=== PATIENT | male | born 1960 | race Caucasian/White ===

== ENCOUNTER 2020-05-24 08:33 | Inpatient (IN) ==
--- NOTE | 2020-05-06 11:39 | PAT Medication Instructions ---
Medication Instructions Date of Service May 06, 2020 Home Medications baclofen 10 mg PO TID empagliflozin [Jardiance] 25 mg PO QAM ibuprofen [Motrin] 200 mg PO Q6H PRN loratadine [Claritin] 10 mg PO QAM pantoprazole 40 mg PO QAM semaglutide [Ozempic] 1 mg SUBCUT WK Continue as directed semaglutide [Ozempic] 1 mg SUBCUT WK ASK your surgeon for instructions ibuprofen [Motrin] 200 mg PO Q6H PRN DO NOT take the morning of surgery baclofen 10 mg PO TID empagliflozin [Jardiance] 25 mg PO QAM loratadine [Claritin] 10 mg PO QAM Take morning of surgery With a small sip of water, OTHERWISE NOTHING TO EAT OR DRINK AFTER MIDNIGHT: pantoprazole 40 mg PO QAM Take evening before surgery baclofen 10 mg PO TID Other Notes If you have any questions please call us at [phone] or [phone] or [phone] or [phone]
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
--- NOTE | 2020-05-11 14:11 | XRay Report ---
XR chest Pre-admission PA/Lat CLINICAL HISTORY: Preoperative chest COMPARISON STUDY: January 2007 FINDINGS: The cardiac and mediastinal contours are normal. There is no evidence of focal pulmonary co nsolidation. There is no evidence of failure. No pleural effusions are visualized.[ IMPRESSION: No active disease in the chest. ACT 112: Negative or not required by law. Electronically signed by: Tirso Burnett M.D. 05/11/2020 2:10 PM
[2020-05-11 15:13] LABS: Basophils # (auto) 0.03 K/uL (0-0.2); Basophils % (auto) 0.4 %; Eosinophils # (auto) 0.29 K/uL (0-0.5); Eosinophils % (auto) 3.4 %; Hematocrit (blood only) 48.6 % (42-52); Hemoglobin 17.2 g/dL (14.0-18.0); Immature Granulocytes # (auto) 0.03 K/uL (0.00-0.02); Immature Granulocytes % (auto) 0.4 %; Lymphocytes % (auto) 29.6 %; Mean Corpuscular Hgb Conc 35.4 g/dL (32-36); Mean Corpuscular Volume 87.6 fL (80-100); Mean Platelet Volume 10.7 fL (7.4-10.4); Monocytes # (auto) 0.51 K/uL (0.11-0.59); Neutrophils # (auto) 5.08 K/uL (1.4-6.5); Neutrophils % (auto) 60.2 %; Platelet Count 223 K/uL (130-400); RDW Coefficient of Variation 12.4 % (11.5-14.5); RDW Standard Deviation 39.6 fL (36.4-46.3); Red Blood Count 5.55 M/uL (4.7-6.1); White Blood Count 8.44 K/uL (4.8-10.8)
[2020-05-11 15:17] LABS: Appearance Urine Clear (Clear); Bilirubin Urine Negative (Negative); Blood Urine Negative (Negative); Color Urine Yellow; Glucose Urine UA 3+ (Negative); Ketones Urine Negative (Negative); Leukocyte Esterase Urine Negative (Negative); Nitrite Urine Negative (Negative); Protein Urine Negative (Negative); Specific Gravity Urine 1.023 (1.000-1.030); Urobilinogen Urine Negative (Negative); pH Urine 5.5 (4.5-7.5)
[2020-05-11 15:26] LABS: BUN Creatinine Ratio 16.3 (10-20); Calcium 9.6 mg/dl (8.5-10.1); Creatinine Clr Calc Pharmacy 65.4 ml/min; Est GFR (African American) 72.4; Est GFR (Non-African American) 62.5; Potassium 4.2 mmol/L (3.5-5.1)
[2020-05-11 15:28] LABS: INR 1.1 (0.9-1.1)
[2020-05-12 05:51] LABS: Estimated Average Glucose 128 mg/dl; Hemoglobin A1C 6.1 % (4.5-5.6)
--- NOTE | 2020-05-12 06:31 | Electrocardiogram Report ---
Test Reason : Blood Pressure : / mmHG Vent. Rate : 070 BPM Atrial Rate : 070 BPM P-R Int : 176 ms QRS Dur : 086 ms QT Int : 396 ms P-R-T Axes : 072 027 063 degrees QTc Int : 427 ms Normal sinus rhythm Normal ECG When compared with ECG of 14-FEB-2007 15:13, No significant change was found Confirmed by Ken Reyes ([id number]) on 05/12/2020 6:31:29 AM Referred By: Johnnie Campoverde Confirmed By:Ken Reyes
[~2020-05-24 08:33] MED LIST: ACETAMINOPHEN 500 MG TAB PO SCH; CLINDAMYCIN 600 MG/54 ML BAG IV SCH; CeleBREX 200 MG CAP PO SCH; GABAPENTIN 600 MG DOSE PO SCH; LR 15ML/HR IV SCH
[2020-05-24] MEDS ORDERED: MIDAZOLAM HCL 1 MG/ML 2ML VIAL ONE (09:42)
[2020-05-24] MEDS ORDERED: fentaNYL citrate 100 MCG/2 ML VIAL ONE ×2 (09:42→10:52)
--- NOTE | 2020-05-24 09:55 | History & Physical Bridge Note ---
Date of Service May 24, 2020 History & Physical Bridge Note I have examined the patient, reviewed the History & Physical and in the interval since the performance of the History & Physical I have noted the following changes of clinical significance: no changes noted
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
[2020-05-24] MEDS ORDERED: ATROPINE SULFATE 0.1 MG/ML 10ML SYR IV PRN (10:05)
[2020-05-24] MEDS ORDERED: ONDANSETRON INJ 2 MG/ML 2 ML VIAL IV PRN ×2 (10:05→13:55)
[2020-05-24] MEDS ORDERED: ePHEDrine sulfate 50 MG/ML AMP IV PRN (10:05)
[2020-05-24] MEDS ORDERED: HYDROmorphone INJ 2 MG/ML SYR/VIAL IV PRN (10:05)
[2020-05-24] MEDS ORDERED: PROMETHAZINE HCL 12.5 MG in SODIUM CHLORIDE 0.9% 50 ML IV PRN ×2 (10:05→13:55)
[2020-05-24] MEDS ORDERED: BACITRACIN INJ 50,000 UNIT VIAL ONE (10:17)
[2020-05-24] MEDS ORDERED: BUPIVACAINE/EPINEPHRINE 0.5% MPF 1:200,000 30 ML VIAL ONE (10:17)
[2020-05-24] MEDS ORDERED: PROPOFOL IV EMULSION 10 MG/ML 20 ML VIAL IV ONE (10:18)
[2020-05-24] MEDS ORDERED: HYDROmorphone INJ 2 MG/ML SYR/VIAL ONE (10:49)
[2020-05-24] MEDS ORDERED: FLOSEAL HEMOSTATIC MATRIX 10ML TOP ONE (11:55)
--- NOTE | 2020-05-24 12:02 | Operative Report ---
Post Operative Report Pre & Post Diagnosis Operation Date: 05/24/20 10:35 Pre-Op Diagnosis: Lumbar disc herniation with radiculopathy Post-Op Diagnosis: Same I identified the patient and participated in the time-out.: Yes Procedure Operation Date: 05/24/20 10:35 Actual Procedures #1 revision decompression with bilateral medial facetectomies and foraminotomies L4-L5. #2 posterior spinal fusion L4-5 per #3 placement posterior instrumentation L4-5 per #4 interbody fusion L4-L5. #5 placement of peek cage 13 x 22 mm at L4-L5. #6 placement locally harvested morselized autograft in the posterior lateral gutters per #7 placement infuse collagen sponge, master graft in the posterior lateral gutters and I factor in the interbody space. Surgeon Johnnie Campoverde DO Physician Non Invasive Cardiologist Mikaela Parish Estimated Blood Loss 50 Findings Consistent with Post-Op Diagnosis Specimens None Indications This is a 51-year-old male who presents with above-mentioned diagnosis after failing course of nonoperative care is here for surgical invention. Description of Procedure Patient was met with identified informed consent obtained. Patient was then taken to the operative suite underwent a patient placed in a prone position Vikas table top Callum frame. All bony prominences well-padded eyes inspected to ensure no external pressure placed upon up at this point the lumbar spine was prepped and draped in a sterile fashion. Sharp dissection with the assistance of Bovie cautery performed down to and exposing the remaining lamina and transverse processes of L4 and L5. Then performed a revision decompression including bilateral medial facetectomies and foraminotomies I did identify a large disc condition at L for L5 on the right. This is removed in its entirety. Pedicle screws then placed in L4-L5 bilaterally with assistance of fluoroscopy the proper sized master placed. By way the transforaminal approach on right a complete discectomy was performed endplates curetted to subcortical any bone and the 13 x 26 mm peek cage filled I factor tapped in position. The rods then locked in final position bilaterally. The transverse processes of L4 and L5 burred to subcortical bleeding bone. Infuse collagen sponge master graft look autograft was placed in the posterior gutters. 15 round JEFERSON drain inserted. The incision was then closed with 1 Vicryl in the fascia 2-0 Vicryl subcutaneously and 4 Monocryl for final skin closure. Steri-Strip sterile dressings placed. Patient will continue PACU stable condition. Please note spinal cord monitoring was utilized at the procedure no changes noted. Lastly Mikaela Parish was present at the entire surgery involved the patient positioning complex portions of the surgery and final skin closure. I attest to the content of the Intraoperative Record and any orders documented therein. Any exceptions are noted below.
--- NOTE | 2020-05-24 12:14 | Fluoroscopy Report ---
FL lumbar spine 2-3V CLINICAL HISTORY: L4-L5 REVISION DECOMPRESSION AND FUSION COMPARISON STUDY: None. FLUOROSCOPY TIME: 19 seconds. FLUOROSCOPIC IMAGES: 2 FINDINGS: Fluoroscopy was provided during L4-L5 discectomy with interbody spacer placement. Posterior decompression is noted. There are bilateral pedicle screws at the L4 and L5 levels with interconnect ing rods. IMPRESSION: Fluoroscopy provided during L4-L5 discectomy, posterior decompression and bilateral pedi quincy screw fusion. ACT 112: Negative or not required by law. Electronically signed by: Marek Rogers M.D. 05/24/2020 12:13 PM
[2020-05-24] MEDS ORDERED: DEXAMETHASONE SOD INJ 4 MG/ML VIAL ONE (12:25)
[2020-05-24] MEDS ORDERED: GLYCOPYRROLATE 0.2 MG/ML VIAL ONE (12:25)
[2020-05-24] MEDS ORDERED: PHENYLEPHRINE 100MCG/ML 5ML SYR ONE (12:25)
[2020-05-24] MEDS ORDERED: ONDANSETRON INJ 2 MG/ML 2 ML VIAL ONE (12:25)
[2020-05-24] MEDS ORDERED: ROCURONIUM BROMIDE 10 MG/ML 5 ML VIAL IV ONE (12:25)
[2020-05-24] MEDS ORDERED: ePHEDrine sulfate 50 MG/ML SYR ONE (12:25)
[2020-05-24] MEDS ORDERED: LIDOCAINE 2% 2 ML VIAL/AMP(20MG/ML) INFIL ONE (12:25)
[2020-05-24] MEDS ORDERED: HYDROmorphone INJ 1 MG/ML SYRINGE ONE ×2 (12:36→13:10)
[2020-05-24] MEDS: fentaNYL citrate 100 MCG/2 ML VIAL IV PRN ×2 (12:38→12:43)
--- NOTE | 2020-05-24 13:25 | Anesthesiology Progress Note ---
Date of Service May 24, 2020 Anesthesia Post Procedure Vital Signs Vital Signs: Temp Pulse Pulse Resp BP Pulse Ox 05/24/20 13:15 36.4 C L 73 12 111/64 94 05/24/20 13:05 67 13 106/64 98 05/24/20 12:55 67 12 106/59 L 98 05/24/20 12:45 76 12 103/61 99 05/24/20 12:35 75 16 106/64 99 05/24/20 12:25 54 L 14 105/58 L 98 05/24/20 12:17 36.3 C L 61 16 103/57 L 95 05/24/20 09:24 36.7 C 87 20 121/78 97 Pain Intensity Lower Back: Pain Intensity: 5 Transfer of Care Handoff Completed per policy Notes Mental Status: alert / awake / arousable and participated in evaluation Patient Amnestic to Procedure: Yes Nausea / Vomiting: adequately controlled Pain: adequately controlled Airway Patency, RR, SpO2: stable & adequate BP & HR: stable & adequate Hydration State: stable & adequate Anesthetic Complications: no major complications apparent and Pt Satisfied with anesthetic care
[2020-05-24] MEDS ORDERED: ACETAMINOPHEN 1,000 MG/100 ML VIAL IV PRN (13:55)
[2020-05-24] MEDS ORDERED: NALOXONE HCL 0.4 MG/1 ML VIAL/CARP IV PRN (13:55)
[2020-05-24] MEDS ORDERED: DO NOT ADMINISTER FLU VACCINE PRN (13:55)
[2020-05-24] MEDS ORDERED: bisacodyL 10 MG SUPP PR PRN (13:55)
[2020-05-24] MEDS ORDERED: ACETAMINOPHEN 500 MG TAB PO PRN (13:55)
[2020-05-24] MEDS ORDERED: MAGNESIUM HYDROXIDE SUSP 30 ML UDC PO PRN (13:55)
[2020-05-24] MEDS ORDERED: LORazepam 0.5 MG TAB PO PRN (13:55)
[2020-05-24] MEDS ORDERED: ALUMINUM/MAGNESIUM SUSP 30 ML UDC PO PRN (13:55)
[2020-05-24] MEDS ORDERED: HYDROmorphone INJ 1 MG/ML SYRINGE IV PRN (13:55)
[2020-05-24] MEDS ORDERED: hydrOXYzine HCl 25 MG TAB PO PRN (13:55)
[2020-05-24] MEDS ORDERED: NON-FORMULARY MEDICATION (Semaglutide [Ozempic] 1 mg/dose (2 mg/1.5 mL) Pen Injector) SQ SCH (13:55)
[2020-05-24] MEDS ORDERED: DO NOT ADMINISTER PNEUMOCOCCAL VACCINE PRN (13:55)
[2020-05-24] MEDS ORDERED: FAMOTIDINE 20 MG TAB PO PRN (13:55)
[2020-05-24] MEDS ORDERED: SOD PHOSPHATE/SOD BIPHOSPHATE ENEMA 132 ML BTL PR PRN (13:55)
[2020-05-24] MEDS ORDERED: HYDROmorphone INJ 0.5 MG/0.5 ML SYR IV PRN (13:55)
[2020-05-24] MEDS ORDERED: LORazepam 0.5 MG/1 ML VIAL IV PRN (13:55)
[2020-05-24] MEDS ORDERED: ONDANSETRON 4 MG OD TAB PO PRN (13:55)
[2020-05-24] MEDS ORDERED: diphenhydrAMINE Capsule 25 MG CAP PO PRN (13:55)
[2020-05-24] MEDS ORDERED: METOCLOPRAMIDE HCL INJ 5 MG/ML 2 ML VIAL IV PRN (13:55)
[2020-05-24] MEDS ORDERED: PHARMACY GLYCEMIC MGMT CONSULT PRN (14:42)
[2020-05-24] MEDS: LACTATED RINGER'S 1,000 ML IV SCH ×2 (14:47→19:18)
[2020-05-24] MEDS: BACLOFEN 10 MG TAB PO SCH ×2 (14:48→21:08)
[2020-05-24] MEDS ORDERED: GLUCOSE 10 TABS/TUBE PO PRN (15:00)
[2020-05-24] MEDS ORDERED: GLUCAGON FOR INJ 1 MG VIAL IM PRN (15:00)
[2020-05-24] MEDS ORDERED: GLUCOSE 40% GEL 15 GM TUBE PO PRN (15:00)
[2020-05-24] MEDS ORDERED: LANTUS PER UNIT CHARGE SQ ONE (15:00)
[2020-05-24] MEDS ORDERED: DEXTROSE 50% 50 ML SYRINGE IV PRN (15:00)
[2020-05-24] MEDS ORDERED: CARBOHYDRATES FOR HYPOGLYCEMIA PO PRN (15:00)
--- NOTE | 2020-05-24 15:02 | Pharmacy Report ---
Pharmacy Glycemic Short Note 2 - Date of Service May 24, 2020 - Glycemic Short BSG Results (Last 24 hours): 05/24/20 05/24/20 09:10 12:38 POC Glucose 142 H 141 H OUTPATIENT ANTIDIABETIC REGIMEN: * Jardiance 25 mg PO daily * Ozempic 1 mg SC weekly * HbA1c: 6.1% (05/11/20) ASSESSMENT: * DC is a 59 year old male POD #0 s/p L4-L5 revision decompression/fusion * Received 8 mg IV dexamethasone in OR * Preop BSG of 142 mg/dL, postop BSG of 141 mg/dL * Will cover with one-time Lantus dose and aggressive Novolog parameters to help cover hyperglycemia effects of steroid PLAN FOR INPATIENT GLYCEMIC CONTROL: * Hold outpatient oral diabetes medications * Basal insulin * Lantus 20 units SQ x 1 (.25 unit/kg) to help cover steroid dose * Bolus insulin * NovoLog per scale ACHS or Q6hrs while NPO * Goal Range: Low 110 mg/dL - High 140 mg/dL * Correction Factor: 20 mg/dL/unit * Nutritional / Prandial insulin per carb ratio of 1 unit per 7 grams CHO consumed * Overnight check this evening PLAN FOR DISCHARGE: * HbA1c of 6.1% is at goal. Reasonable to continue outpatient regimen at discharge.
[2020-05-24] MEDS: oxyCODONE HCL IR 5 MG TAB (IMMEDIATE RELEASE) PO PRN (15:08)
[2020-05-24] MEDS: INSULIN ASPART 100 UNITS/ML 3 ML PEN SC SCH ×2 (17:17→21:10)
[2020-05-24] MEDS: CLINDAMYCIN 600 MG in DEXTROSE 5% 50 ML IV SCH (17:22)
[2020-05-24] MEDS: traMADol HCL 50 MG TABLET PO PRN (19:32)
[2020-05-24] MEDS: DOCUSATE SODIUM/SENNA 50/8.6MG TAB PO SCH (21:09)
[2020-05-25] MEDS ORDERED: INSULIN ASPART 100 UNITS/ML 3 ML PEN SC SCH
[2020-05-25] MEDS: CLINDAMYCIN 600 MG in DEXTROSE 5% 50 ML IV SCH (01:36)
[2020-05-25] MEDS: POLYETHYLENE (MIRALAX) 17 GM PACK PO SCH ×3 (05:16→17:35)
[2020-05-25] MEDS: oxyCODONE HCL IR 5 MG TAB (IMMEDIATE RELEASE) PO PRN ×3 (05:39→19:36)
[2020-05-25 06:49] LABS: Hematocrit (blood only) 42.6 % (42-52); Hemoglobin 14.9 g/dL (14.0-18.0); Immature Granulocytes # (auto) 0.05 K/uL (0.00-0.02); Immature Granulocytes % (auto) 0.3 %; Lymphocytes # (auto) 0.94 K/uL (1.2-3.4); Mean Corpuscular Hemoglobin 30.6 pg (25-34); Mean Corpuscular Volume 87.5 fL (80-100); Mean Platelet Volume 10.5 fL (7.4-10.4); Monocytes # (auto) 1.22 K/uL (0.11-0.59); Monocytes % (auto) 7.9 %; Neutrophils # (auto) 13.33 K/uL (1.4-6.5); Neutrophils % (auto) 85.8 %; Platelet Count 228 K/uL (130-400); RDW Coefficient of Variation 12.5 % (11.5-14.5); RDW Standard Deviation 40.1 fL (36.4-46.3); Red Blood Count 4.87 M/uL (4.7-6.1); White Blood Count 15.54 K/uL (4.8-10.8)
[2020-05-25 07:17] LABS: BUN Creatinine Ratio 18.3 (10-20); Creatinine Clr Calc Pharmacy 75.8 ml/min; Est GFR (African American) 87.2; Est GFR (Non-African American) 75.3; Potassium 4.3 mmol/L (3.5-5.1)
--- NOTE | 2020-05-25 08:07 | Anesthesiology Progress Note ---
Date of Service May 25, 2020 Anesthesia Post Procedure Vital Signs Vital Signs: Temp Pulse Pulse Pulse Resp BP Pulse Ox 05/25/20 07:34 36.5 C 71 16 99/63 L 96 05/25/20 05:43 36.5 C 74 20 100/65 96 05/25/20 02:30 36.7 C 70 16 99/62 L 93 05/24/20 22:41 36.5 C 82 16 99/65 L 94 05/24/20 19:29 36.4 C L 89 16 108/69 92 05/24/20 15:45 36.5 C 63 18 99/68 L 96 05/24/20 14:45 68 14 107/65 96 05/24/20 14:15 65 18 98/62 L 94 05/24/20 13:45 36.4 C L 59 L 14 113/69 97 05/24/20 13:37 36.4 C L 65 14 101/73 95 05/24/20 13:25 36.4 C L 61 12 100/60 96 05/24/20 13:15 36.4 C L 73 12 111/64 94 05/24/20 13:05 67 13 106/64 98 05/24/20 12:55 67 12 106/59 L 98 05/24/20 12:45 76 12 103/61 99 05/24/20 12:35 75 16 106/64 99 05/24/20 12:25 54 L 14 105/58 L 98 05/24/20 12:17 36.3 C L 61 16 103/57 L 95 05/24/20 09:24 36.7 C 87 20 121/78 97 Pain Intensity Lower Back: Pain Intensity: 5 Notes Mental Status: alert / awake / arousable Patient Amnestic to Procedure: Yes Nausea / Vomiting: adequately controlled Pain: adequately controlled Airway Patency, RR, SpO2: stable & adequate BP & HR: stable & adequate Hydration State: stable & adequate Anesthetic Complications: no major complications apparent and Pt Satisfied with anesthetic care
[2020-05-25] MEDS: LORATADINE 10 MG TAB PO SCH (09:18)
[2020-05-25] MEDS: TAMSULOSIN HCL 0.4 MG CAP PO SCH (09:18)
[2020-05-25] MEDS: BACLOFEN 10 MG TAB PO SCH ×3 (09:19→20:58)
[2020-05-25] MEDS: PANTOprazole 40 MG TAB PO SCH (09:19)
[2020-05-25] MEDS: INSULIN ASPART 100 UNITS/ML 3 ML PEN SC SCH ×4 (09:19→22:43)
--- NOTE | 2020-05-25 10:27 | Orthopedic Progress Note ---
Date of Service May 25, 2020 Assessment & Plan (1) Neurogenic claudication due to lumbar spinal stenosis: Patient is doing great postoperative day 1. He will start physical therapy today. Continue with pain control. DVT prophylaxis is in the form of teds and SCDs. Continue with aggressive bowel regimen. Anticipate discharge within the next 24 to 48 hours. Admission and Anticipated Discharge Date Admission Date: May 24, 2020 Supervising Physician Co-Signing Physician Notes Dr. Johnnie Campoverde Aurelio Ashley is postoperative day 1 TLIF of L4-5 revision in nature. He is doing fantastic. Denies radicular leg pain. Back pain is controlled. JEFERSON drain output last shift was 40 cc. H&H is morning are 14.9 and 42.6 respectively. No issues overnight. Overall doing well. Review of Systems Review of Systems: All systems reviewed & are unremarkable except as noted in HPI & below Physical Exam Physical Exam: He is alert and oriented x3 No acute distress Calf is soft and nontender bilaterally. Strength is 5/5 bilateral EHL, dorsiflexion, plantarflexion, quadriceps, hamstrings Lumbar dressing is clean dry and intact with functioning JEFERSON drain Constitutional: WD/WN, vitals as above Eyes: normal visual curry by confrontation ENMT: external ear and nose normal, oropharynx normal Neck: normal visual inspection Respiratory: normal respiratory effort Cardiovascular: Extremities: normal capillary refill Chest (Breasts): Chest: normal inspection of chest Gastrointestinal (Abdomen): Inspection/Auscultation: abdomen normal to inspection Musculoskeletal: no cyanosis or clubbing, extremities motor strength 5/5 Skin: no rashes, warm and dry Neurologic: normal touch/pain/proprioception and moves all extremities Psychiatric: A+Ox3, euthymic affect Results & Data ([facility]) Vital Signs (Past 12 Hours) Vital Signs Temp Pulse Resp BP Pulse Ox 05/25/20 07:34 36.5 C 71 16 99/63 L 96 05/25/20 05:43 36.5 C 74 20 100/65 96 05/25/20 02:30 36.7 C 70 16 99/62 L 93 05/24/20 22:41 36.5 C 82 16 99/65 L 94
[2020-05-25] MEDS: traMADol HCL 50 MG TABLET PO PRN (20:57)
[2020-05-25] MEDS: DOCUSATE SODIUM/SENNA 50/8.6MG TAB PO SCH (20:58)
[2020-05-26] MEDS: POLYETHYLENE (MIRALAX) 17 GM PACK PO SCH ×3 (00:29→11:04)
[2020-05-26] MEDS: oxyCODONE HCL IR 5 MG TAB (IMMEDIATE RELEASE) PO PRN (05:29)
[2020-05-26] MEDS: traMADol HCL 50 MG TABLET PO PRN (07:39)
[2020-05-26] MEDS ORDERED: dexAMETHasone 8 MG in SYRINGE 0 ML IV SCH (09:00)
[2020-05-26] MEDS ORDERED: LANTUS PER UNIT CHARGE SQ SCH (09:00)
[2020-05-26] MEDS: PANTOprazole 40 MG TAB PO SCH (09:07)
[2020-05-26] MEDS: BACLOFEN 10 MG TAB PO SCH ×2 (09:07→14:32)
[2020-05-26] MEDS: LORATADINE 10 MG TAB PO SCH (09:07)
[2020-05-26] MEDS: TAMSULOSIN HCL 0.4 MG CAP PO SCH (09:07)
[2020-05-26] MEDS: INSULIN ASPART 100 UNITS/ML 3 ML PEN SC SCH ×2 (09:11→14:28)
--- NOTE | 2020-05-26 10:05 | Pharmacy Report ---
Pharmacy Glycemic Short Note 2 - Date of Service May 26, 2020 - Glycemic Short BSG Results (Last 24 hours): 05/25/20 05/25/20 05/25/20 12:21 17:26 20:33 POC Glucose 116 H 128 H 100 H 05/26/20 08:07 POC Glucose 106 H OUTPATIENT ANTIDIABETIC REGIMEN: * Jardiance 25 mg PO daily * Ozempic 1 mg SC weekly * HbA1c: 6.1% (05/11/20) ASSESSMENT: 05/26: * BSGs have been well controlled, 117, 116, 128, and 100 mg/dL yesterday * Patient received 12 units of bolus insulin only * IV dexamethasone 8 mg daily starting today - will restart Lantus to be given with dexamethasone 05/24: * DC is a 59 year old male POD #0 s/p L4-L5 revision decompression/fusion * Received 8 mg IV dexamethasone in OR * Preop BSG of 142 mg/dL, postop BSG of 141 mg/dL * Will cover with one-time Lantus dose and aggressive Novolog parameters to help cover hyperglycemia effects of steroid PLAN FOR INPATIENT GLYCEMIC CONTROL: * Hold outpatient oral diabetes medications * Basal insulin - restart Lantus * Lantus 16 units (0.2 unit/kg) SC daily with IV dexamethasone * Bolus insulin - continue * NovoLog per scale ACHS or Q6hrs while NPO * Goal Range: Low 110 mg/dL - High 140 mg/dL * Correction Factor: 25 mg/dL/unit * Nutritional / Prandial insulin per carb ratio of 1 unit per 8 grams CHO consumed * Overnight check this evening PLAN FOR DISCHARGE: * HbA1c of 6.1% is at goal. Reasonable to continue outpatient regimen at discharge.
--- NOTE | 2020-05-26 10:32 | Discharge Summary ---
Date of Service May 26, 2020 Admission HPI Per Admitting Provider This is a 51-year-old male who presents with worsening back and leg pain. Failing course of nonoperative care is here for surgical invention. Principal Diagnosis Recurrent disc herniation with radiculopathy Discharge Data Allergies Allergy/AdvReac Type Severity Reaction Status Date / Time Penicillins Allergy Severe Unknown Verified 05/24/20 09:17 NSAIDS (Non-Steroidal AdvReac GI Bleed Verified 05/24/20 09:17 Anti-Inflamma antibiotics AdvReac mouth Uncoded 05/24/20 09:17 sores, n/v, gi upset, swelling of tongue Procedures Performed Operation Date: 05/24/20 10:35 Actual Procedures p L4-L5 Revision Decompression Fusion Spinal Cord Monitoring, Application of Bone Morphogenetic Protein, Placement of Interbody L4-L5 (Not Applicable) - Johnnie Campoverde DO Ordered Studies 05/24/20 10:35 FL fluoroscopy <1hr Routine FL lumbar spine 2-3V Routine Hospital Course (1) Neurogenic claudication due to lumbar spinal stenosis: Patient with lumbar decompression fusion tolerated well second orthopedic floor postoperatively. Postop day 1 is up and ambulating leg pain markedly improved progressed to postop day #2. Excellent strength testing. JEFERSON drain decreasing probably. Subsequent discharge home. Discharge orders instructions from the chart for further review. Total Time Total Time Spent Total Time Spent (In Minutes): 20 minutes Discharge Plan Discharge Items Patient Disposition: Home - Self-Care Reason For Visit: Other Intervetebral Disc Displacement Lumbar Regio Discharge Diagnosis: Lumbar disc condition with radiculopathy Activity: As commented below Non-emergency contact: Primary Care Provider Call non-emergency contact if: you have any medication questions Follow-up/Referrals: Luci Medrano PA-C [Primary Care Provider] - Diet: Regular Addtl Attending Provider Instructions: ACTIVITY RECOMMENDATIONS: SELF CARE INSTRUCTIONS AFTER THORACIC/LUMBAR FUSIONS 1. You may walk to your tolerance. It is good exercise for your legs and back. Expect some back and intermittent leg aches and pains. 2. You may perform "counter-top" level activities (make a sandwich, jitendra with a project, etc.). 3. No bending or lifting of more than 10 pounds or back twisting of any nature (roll like a log when turning in bed). 4. You may ride in a car for 20-30 minutes at a time. No driving until after your first visit with your doctor. 5. Frequent changes of position and restricting sitting to 30 minutes at a time will help limit the amount of back spasms and stiffness you may experience. 6. You may discontinue the use of ambulatory aids (cane, crutches, etc.) once your strength and confidence allow. 7. You may printed circuit photographer the shower and let water strike your incision when you arrive home at least once daily. Do not take a tub bath, sit in a hot tub or go into a swimming pool until after your first recheck in the office. SPECIAL CARE INSTRUCTIONS: VERY IMPORTANT TO READ AND REVIEW A. Your surgical incision has been closed with a cosmetic suture under the skin that will dissolve in about 6 weeks. In 14 days, you can use a pair of clean scissors and cut the suture that is left outside of the skin at the ends of your incision. 1. The small skin tapes can be removed 7 days after surgery if they have not fallen off by that point. 2. You may keep the wound open to air as much as possible to promote healing after post-op day number 5 unless told otherwise by your doctor. 3. If you think the wound looks like it is becoming infected (redness or worsening drainage) and/or you are experiencing fever, chill or worsening back pain and muscle spasms, contact the office so that we may evaluate you as soon as possible. B. Complications are uncommon, but please contact us if you have any signs or symptoms of: 1. wound infection (fever higher than 102.5 degrees F, redness, separation of wound, drainage, or increasing pain from the incision) 2. blood clots in legs (pain, swelling, redness and warmth in legs) 3. urinary tract infection (fever higher than 102.5 degrees F, burning upon urination or increased frequency of urination) 4. nerve problems (inability to walk on your toes or heels, numbness, loss of bowel or bladder control) 5. any other symptoms that concern you C. Please call the office at if you have any concerns or questions about your operation or recovery. D. No smoking! Smoking drastically decreases the chance of a solid fusion. E. Do not take any anti-inflammatory medications (Indocin, Advil, Motrin, Aspirin, Naprosyn, etc.) as these may inhibit the chance of a solid fusion. Tylenol is okay to take for pain. MANAGING PAIN AFTER SPINAL SURGERY 1. Narcotic medication is intended for short-term use and will be provided for surgical pain. Surgical pain usually lasts for a period of 4-6 weeks. Narcotic medication includes Percocet, Vicodin, Darvocet, Tylenol #3 or Lortab. 2. Longer-term pain is more appropriately treated with non-narcotic medication such as Tylenol ES. 3. Muscle spasm is not appropriately treated with narcotics. Muscle relaxers such as Soma, Flexeril or Skelaxin can be used along with Tylenol ES. 4. Remember that we all live with some "aches and pains". This is not unusual or uncommon after an injury or as we get older. a. Back pain is expected and may include muscle spasms for 4 to 6 weeks after surgery. The pain should gradually improve. If the pain worsens for no apparent reason, please contact the office. b. Intermittent leg pain may also be experienced and should not be concerned about unless it worsens for no apparent reason. If so, please contact the office. 5. We will provide appropriate medication within the normal guidelines of their prescribed use. We will also be very cautious and aware of potential abuse and extended duration of patients' medication needs. a. Pain medications are for your comfort and to assist with sleep and rest so that the tissue can heal. They are not provided in order to return to normal activity and should not be used through the day. To do so or worsening pain at night can result from ongoing tissue damage and development of tolerance to the prescribed medicine. 6. Please allow 2-3 days to process refills. Prescriptions will not be mailed but must be picked up at the office. FOLLOW UP VISIT: Keep your scheduled follow-up appointment. Any questions, please call the office at . Pending Studies at Discharge: No Stand-Alone Forms: [employer], Smoking Cessation Medications and DC Order Prescriptions: New oxycodone 5 mg tablet 5 mg PO Q6H PRN (Reason: pain, severe) Qty: 30 RF: 0 tramadol 50 mg tablet 50 mg PO Q6H PRN (Reason: pain, moderate) Qty: 30 RF: 0 Continued baclofen 10 mg Tablet 10 mg PO TID RF: 0 pantoprazole [Protonix] 40 mg Tablet,Delayed Release (Dr/Ec) 40 mg PO QAM RF: 0 loratadine [Claritin] 10 mg Tablet 10 mg PO QAM RF: 0 Jardiance 25 mg Tablet 25 mg PO QAM RF: 0 Ozempic 1 mg/dose (2 mg/1.5 mL) Pen Injector 1 mg SUBCUT WK RF: 0 tamsulosin [Flomax] 0.4 mg Capsule 0.4 mg PO DAILY RF: 0 Discontinued ibuprofen [Motrin] 100 mg Tablet 200 mg PO Q6H PRN (Reason: Pain) RF: 0 Discharge Orders: Discharge Order (Routine); Ordered 05/26/20 Ordered By: Johnnie Shah/Other Patient Handouts: Managing Type 2 Diabetes, A1C Admission Data Admit Date/Time: 05/24/20 12:40 Attending Provider: Johnnie Campoverde Admit Provider: Johnnie Campoverde Primary Care Provider: Luci Medrano
== END 2020-05-26 15:15 | disposition home or self-care (01) | DRG 455 ==
LOC: ASU 08:33 → 3E 12:40